=== PATIENT | female | born 1990 | race Caucasian/White ===

== ENCOUNTER 2024-12-26 14:33 | Emergency (ER) | payer MEDICAID ==
[~2024-12-26] VITALS: Ht 154.9 cm; Wt 68.4 kg
[~2024-12-26 14:33] MED LIST: IBUP-2030 MT
[2024-12-26 14:39] VITALS: O2SAT 100
[2024-12-26 14:41] VITALS: BP 140/78; PULSE 78; RESP 16; TEMP 36.9; O2SAT 100
[2024-12-26 15:00] LABS: BASOPHILS % 0.5 % (0.0-2.0); DIFFERENTIAL COMMENT 0; EOSINOPHILS % 2.4 % (0.0-5.0); HEMATOCRIT. 41.1 % (36.0-48.0); HEMOGLOBIN. 13.5 g/dL (12.0-16.0); MEAN CORPUSCULAR HEMOGLOBIN 30.3 pg (28.0-32.0); MEAN CORPUSCULAR HGB CONC 32.9 g/dL (31.0-37.0); MEAN CORPUSCULAR VOLUME 92.1 fL (81.0-99.0); MEAN PLATELET VOLUME 10.1 fl (7.4-10.4); MONOCYTES % 5.2 % (2.0-8.0); NEUTROPHILS % 60.9 % (40.0-76.0); PLATELET 198 x1000/uL (130-400); RED BLOOD CELL COUNT 4.46 mill/uL (4.2-5.4); RED CELL DISTRIBUTION WIDTH 13.6 % (11.6-14.6); WHITE BLOOD COUNT 8.9 x1000/uL (4.5-11.0)
[2024-12-26 15:08] LABS: CARBON DIOXIDE 26 mEq/L (21-32); CHLORIDE 104 mEq/L (98-107); POTASSIUM 3.7 mEq/L (3.5-5.1); SODIUM 138 mEq/L (136-145)
[2024-12-26 15:09] LABS: CALCIUM 9.1 mg/dL (8.7-10.4)
[2024-12-26 15:13] LABS: CREATININE 0.7 mg/dL (0.6-1.0); HCG SCREEN NEGATIVE
[2024-12-26 15:14] LABS: GLUCOSE 144 mg/dL (70-105); UREA NITROGEN BLOOD 10 mg/dL (9-23)
[2024-12-26 15:16] LABS: ALANINE AMINOTRANSFERASE 14 IU/L (10-49); ALBUMIN 4.4 g/dL (3.2-4.8); ASPARTATE AMINOTRANSFERASE 17 IU/L (<34); BILIRUBIN TOTAL 0.3 mg/dL (0.1-1.0); PROTEIN TOTAL 7.8 g/dL (6.0-8.3)
[2024-12-26 15:42] LABS: BILIRUBIN DIRECT < 0.1 mg/dL (<=3.0)
[2024-12-26] MEDS: ACETAMINOPHEN 1000MG/100ML 100 ML IV ONE (16:37)
[2024-12-26] MEDS ORDERED: TOPUD PO (16:57)
== END 2024-12-26 17:54 | disposition home or self-care (01) ==
LOC: ER 14:33
DX: R10.32 Left lower quadrant pain (principal); Z98.890 Other specified postprocedural states; Z90.721 Acquired absence of ovaries, unilateral; Z98.891 History of uterine scar from previous surgery
CPT/HCPCS: 36415; 74176; 80048; 80076; 84703; 85025; 96365; 99285; J0131